=== PATIENT | female | born 1960 | race Caucasian/White ===

== ENCOUNTER 2016-07-30 14:57 | Emergency (ER) | payer OTHER ==
[2016-07-30 15:08] VITALS: TEMP 98.3
[2016-07-30 16:02] LABS: BASOPHILS % (AUTO) 2 % (0-3); EOSINOPHILS % (AUTO) 4 % (0-9); HEMATOCRIT 35 % (35-47); MEAN CORPUSCULAR HGB CONC 36.8 gm/dl (32.0-36.0); MEAN CORPUSCULAR VOLUME 84 fL (81-99); MONOCYTES % (AUTO) 6.6 % (0-12); NEUTROPHILS % (AUTO) 55.2 % (37-80)
[2016-07-30 16:19] LABS: ALBUMIN 4.1 gm/dl (3.4-5.0); CALCIUM 8.8 mg/dl (8.5-10.1); POTASSIUM 3.6 mMol/L (3.5-5.1)
[2016-07-30 17:43] VITALS: BP 103/59; PULSE 80; RESP 20; O2SAT 100
== END 2016-07-30 17:40 | disposition home or self-care (01) ==
LOC: ED 14:57
DX: M54.5 Low back pain (principal); R25.1 Tremor, unspecified; R53.83 Other fatigue; F41.9 Anxiety disorder, unspecified
CPT/HCPCS: 36415; 80053; 82150; 85025; 99283; 99284

== ENCOUNTER 2017-02-15 05:03 | Emergency (ER) | payer OTHER ==
[2017-02-15 05:16] VITALS: RESP 18; TEMP 98.3
[2017-02-15] MEDS ORDERED: HYDROMORPHONE 1 MG/ML SYRINGE IV ONE (05:19)
[2017-02-15] MEDS ORDERED: ONDANSETRON HCL 4 MG/2 ML SOL IV ONE (05:19)
[2017-02-15] MEDS ORDERED: SODIUM CHLORIDE 0.9% 1000ML 1,000 ML IV ONE (05:20)
[2017-02-15] MEDS: SODIUM CHLORIDE 0.9% FLUSH 10 ML SOL IV PRN ×2 (05:25→06:52)
[2017-02-15] MEDS ORDERED: ONDANSETRON HCL 4 MG/2 ML SOL ONE (05:28)
[2017-02-15] MEDS ORDERED: HYDROMORPHONE 1 MG/ML SYRINGE ONE ×2 (05:28→06:44)
[2017-02-15 05:31] LABS: BASOPHILS % (AUTO) 1 % (0-3); EOSINOPHILS % (AUTO) 1 % (0-9); HEMATOCRIT 37 % (35-47); MEAN CORPUSCULAR HGB CONC 34.7 gm/dl (32.0-36.0); MEAN CORPUSCULAR VOLUME 88 fL (81-99); MONOCYTES % (AUTO) 6.2 % (0-12); NEUTROPHILS % (AUTO) 59.3 % (37-80)
[2017-02-15 05:47] LABS: CALCIUM 9.3 mg/dl (8.5-10.1); POTASSIUM 3.6 mMol/L (3.5-5.1)
[2017-02-15 06:16] LABS: APPEARANCE,URINE CLEAR; BILIRUBIN,URINE NEGATIVE (NEGATIVE); COLOR,URINE YELLOW; GLUCOSE, URINE (UA) NEGATIVE (NEGATIVE); KETONES,URINE NEGATIVE (NEGATIVE); LEUKOCYTE ESTERASE ,URINE NEGATIVE (NEGATIVE); NITRATE,URINE NEGATIVE (NEGATIVE); OCCULT BLOOD,URINE NEGATIVE (NEG-TRACE); PH,URINE 6.5; RBC,URINE 0-1 (0-3AV/HPF); WBC,URINE 0-2 (0-5AV/HPF)
[2017-02-15] MEDS ORDERED: HYDROMORPHONE HCL 2 MG/ML SOL IV ONE (06:43)
[2017-02-15 06:55] VITALS: BP 119/82; PULSE 80; O2SAT 99
== END 2017-02-15 07:06 | disposition home or self-care (01) ==
LOC: ED 05:03
DX: K59.00 Constipation, unspecified (principal); G89.29 Other chronic pain; M54.9 Dorsalgia, unspecified; Z87.19 Personal history of other diseases of the digestive system
CPT/HCPCS: 99285 ×3; 80053; 81001; 83690; 85025; J1170 ×2; J2405; 74000

== ENCOUNTER 2017-04-01 11:59 | Emergency (ER) | payer OTHER ==
[2017-04-01 12:15] VITALS: RESP 20; TEMP 97.5
[2017-04-01] MEDS ORDERED: SODIUM CHLORIDE 0.9% 1000 ML SOL IV SCH (12:30)
[2017-04-01 12:31] LABS: BASOPHILS % (AUTO) 1 % (0-3); EOSINOPHILS % (AUTO) 5 % (0-9); HEMATOCRIT 32 % (35-47); MEAN CORPUSCULAR HGB CONC 35.5 gm/dl (32.0-36.0); MEAN CORPUSCULAR VOLUME 87 fL (81-99); MONOCYTES % (AUTO) 9.4 % (0-12); NEUTROPHILS % (AUTO) 51.8 % (37-80)
[2017-04-01 12:40] LABS: CALCIUM 8.7 mg/dl (8.5-10.1); POTASSIUM 3.7 mMol/L (3.5-5.1)
[2017-04-01] MEDS ORDERED: SODIUM CHLORIDE 0.9% 1000ML 1,000 ML IV ONE (12:57)
[2017-04-01 14:01] LABS: APPEARANCE,URINE Clear; BILIRUBIN,URINE NEGATIVE (NEGATIVE); COLOR,URINE Yellow; GLUCOSE, URINE (UA) NEGATIVE (NEGATIVE); KETONES,URINE NEGATIVE (NEGATIVE); LEUKOCYTE ESTERASE ,URINE NEGATIVE (NEGATIVE); NITRATE,URINE NEGATIVE (NEGATIVE); OCCULT BLOOD,URINE TRACE INTACT (NEG-TRACE); UROBILINOGEN,URINE 0.2 (0.2-1.0 EU)
[2017-04-01 14:14] LABS: METHADONE NEGATIVE (NEGATIVE); OPIATES(OP13) POSITIVE (NEGATIVE); RBC,URINE 0-2 (0-3AV/HPF); TRICYCLIC ANTIDEPRESSANTS NEGATIVE (NEGATIVE); WBC,URINE NEGATIVE (0-5AV/HPF)
[2017-04-01 14:15] LABS: AMPHETAMINES NEGATIVE (NEGATIVE); OXYCODONE(OXY) NEGATIVE (NEGATIVE); PROPOXYPHENE(PPX) NEGATIVE (NEGATIVE)
[2017-04-01] MEDS ORDERED: SODIUM CHLORIDE 0.9% 1000ML 1,000 ML IV SCH (14:15)
[2017-04-01 16:21] VITALS: BP 104/58; PULSE 81; O2SAT 94
== END 2017-04-01 16:05 | disposition home or self-care (01) ==
LOC: ED 11:59
DX: T50.901A Poisoning by unspecified drugs, medicaments and biological substances, accidental (unintentional), initial encounter (principal); F11.20 Opioid dependence, uncomplicated; G90.3 Multi-system degeneration of the autonomic nervous system
CPT/HCPCS: 36415; 80048; 80305; 81001; 85025; 93005; 99285

== ENCOUNTER 2017-05-22 14:37 | Emergency (ER) | payer OTHER ==
[2017-05-22 15:10] VITALS: PULSE 73; RESP 20; TEMP 98.2
[2017-05-22] MEDS ORDERED: ONDANSETRON HCL 4 MG/2 ML SOL IV ONE (15:21)
[2017-05-22] MEDS ORDERED: ONDANSETRON HCL 4 MG/2 ML SOL ONE (15:24)
[2017-05-22] MEDS ORDERED: SODIUM CHLORIDE 0.9% 1000ML 1,000 ML IV SCH (15:30)
[2017-05-22 15:37] LABS: BASOPHILS % (AUTO) 1 % (0-3); EOSINOPHILS % (AUTO) 3 % (0-9); HEMATOCRIT 31 % (35-47); MEAN CORPUSCULAR HGB CONC 36.6 gm/dl (32.0-36.0); MEAN CORPUSCULAR VOLUME 83 fL (81-99); MONOCYTES % (AUTO) 6.5 % (0-12); NEUTROPHILS % (AUTO) 73.7 % (37-80)
[2017-05-22 15:48] VITALS: BP 99/63; O2SAT 99
[2017-05-22 15:50] LABS: ALBUMIN 3.7 gm/dl (3.4-5.0); CALCIUM 8.7 mg/dl (8.5-10.1)
== END 2017-05-22 17:08 | disposition home or self-care (01) ==
LOC: ED 14:37
DX: I95.9 Hypotension, unspecified (principal); R11.0 Nausea
CPT/HCPCS: 36415; 80053; 85025; 87804; 96365; 96374; 99282; 99283; J2405

== ENCOUNTER 2017-07-26 14:38 | Emergency (ER) | payer OTHER ==
[2017-07-26 14:44] VITALS: TEMP 97.6
[2017-07-26] MEDS ORDERED: SODIUM CHLORIDE 0.9% 1000ML 1,000 ML IV ONE (15:20)
[2017-07-26] MEDS ORDERED: SODIUM CHLORIDE 0.9% FLUSH 10 ML SOL IV PRN (15:38)
[2017-07-26 20:24] VITALS: BP 115/80; PULSE 82; RESP 20; O2SAT 96
== END 2017-07-26 16:52 | disposition home or self-care (01) ==
LOC: ED 14:38
DX: R05 Cough (principal); R09.89 Other specified symptoms and signs involving the circulatory and respiratory systems; H92.09 Otalgia, unspecified ear; R11.10 Vomiting, unspecified; R00.0 Tachycardia, unspecified; E86.0 Dehydration
CPT/HCPCS: 87430; 87804; 99283